=== PATIENT | female | born 1975 | race Caucasian/White ===

== ENCOUNTER 2017-09-18 16:30 | Emergency (ER) | payer BC ==
--- NOTE | 2017-09-18 17:07 | ED ---
Lower Extremity - HPI Summary HPI Summary: 42 female presents to ED with complaints of right foot pain that began after missing a step and twisting her foot around 2 pm today. States she has since had swelling, bruising, pain and has been unable to bear weight. Think she broke it. No numbness/tingling. No other complaints. No PMHx. No medications. No ankle, leg or other injuries. - History of Current Complaint Chief Complaint: EDExtremityLower Stated Complaint: POSSIBLE BROKEN FOOT Time Seen by Provider: 09/18/17 17:07 Hx Obtained From: Patient Mechanism Of Injury: Twisted Onset of Pain: Immediate, Post Accident Onset/Duration: Hours Severity Initially: Moderate Severity Currently: Moderate Pain Intensity: 8 Pain Scale Used: 0-10 Numeric Timing: Constant Location: Is Discrete @ - right anterior foot lateral side Character Of Pain: Aching Associated Signs And Symptoms: Positive: Swelling, Bruising Aggravating Factor(s): Standing, Movement, Weight Bearing Alleviating Factor(s): Rest Able to Bear Weight: No - due to pain PMH/Surg Hx/FS Hx/Imm Hx Endocrine/Hematology History: Denies: Hx Anticoagulant Therapy, Hx Diabetes Cardiovascular History: Denies: Hx Hypertension - Surgical History Surgery Procedure, Year, and Place: none - Immunization History Immunizations Up to Date: Yes Infectious Disease History: No Infectious Disease History: Denies: Traveled Outside the [place] in Last 30 Days - Social History Smoking Status (MU): Never Smoked Tobacco Review of Systems Constitutional: Negative Cardiovascular: Negative Respiratory: Negative Positive: Arthralgia, Myalgia, Decreased ROM, Edema Positive: Bruising - right foot Neurological: Negative All Other Systems Reviewed And Are Negative: Yes Physical Exam Triage Information Reviewed: Yes Vital Signs On Initial Exam: Initial Vitals Temp Pulse Resp BP Pulse Ox 98.6 F 67 16 114/84 99 09/18/17 16:55 09/18/17 16:55 09/18/17 16:55 09/18/17 16:55 09/18/17 16:55 Vital Signs Reviewed: Yes Appearance: Positive: Well-Appearing, No Pain Distress, Well-Nourished Skin: Positive: Warm, Skin Color Reflects Adequate Perfusion, Dry, Other - edema and ecchymosis noted over 5th right metatarsal Neck: Positive: Supple, Nontender Respiratory/Lung Sounds: Positive: Clear to Auscultation, Breath Sounds Present. Negative: Rales, Rhonchi, Wheezes Cardiovascular: Positive: Normal, RRR, Pulses are Symmetrical in both Upper and Lower Extremities - 2+ radial bl. Negative: Murmur, Rub Musculoskeletal: Positive: Normal, Limited @ - with flexion/extension against resistance of right foot due to pain, Abnormal @ - edema, eccyhmosis and signs of trauma, Pain @ - right anterior foot over fifth metatarsal lateral side, Edema Right - minimal over fifth metatarsal of right foot, Other. Negative: Interruption @, Edema Left Neurological: Positive: Normal, Sensory/Motor Intact, Alert, Oriented to Person Place, Time, Unable to Assess Gait - due to pain/injury Procedures - Splinting Location: right lower leg/foot Pre-Made Type: cam boot Pre-Proc Neuro Vasc Exam: normal Post-Proc Neuro Vasc Exam: normal, unchanged from pre-exam Diagnostics - Vital Signs Vital Signs Temp Pulse Resp BP Pulse Ox 09/18/17 16:55 98.6 F 67 16 114/84 99 - Laboratory Lab Statement: Any lab studies that have been ordered have been reviewed, and results considered in the medical decision making process. - Radiology right foot Xray Interpretation: Positive (See Comments) - Oblique fracture through the mid to distal fifth metatarsal. Radiology Interpretation Completed By: Radiologist Lower Extremity Course/Dx - Course Course Of Treatment: patient did not want ibuprofen at this time. xray obtained and showed fifth metatarsal fracture. placed in CAM boot. RICE and analgesia at home. non weight bearing/crutches. follow up with ortho. aware of worsening signs/symptoms to watch out for. no other concerns at this time. - Diagnoses Differential Diagnosis/HQI/PQRI: Positive: Fracture (Closed), Sprain, Strain Provider Diagnoses: Fracture of fifth metatarsal bone of right foot Discharge - Discharge Plan Condition: Good Disposition: HOME Patient Education Materials: Foot Fracture in Adults (ED) Referrals: Nikky Joshi MD [Primary Care Provider] - Vipin Costello MD [Medical Doctor] - Additional Instructions: Rest, ice, elevate and take ibuprofen for pain and inflammation. Avoid bearing weight, wear CAM boot splint. Use crutches. Any new or worsening signs/symptoms please seek medical attention promptly. Follow up with orthopedics, call to make an appointment for follow up care.
--- NOTE | 2017-09-18 17:29 | RAD ---
Indication: Right foot pain and injury. 3 views of the right foot demonstrates spiral fracture midshaft of the fifth metatarsal extending into the head. Minimal displacement is noted. IMPRESSION: Oblique fracture through the mid to distal fifth metatarsal.
[2017-09-18 18:48] VITALS: BP 115/75
== END 2017-09-18 18:47 | disposition home or self-care (01) ==
LOC: ED 16:30
DX: S92.351A Displaced fracture of fifth metatarsal bone, right foot, initial encounter for closed fracture (principal); X50.1XXA Overexertion from prolonged static or awkward postures, initial encounter; Y92.9 Unspecified place or not applicable
CPT/HCPCS: 99281